=== PATIENT | male | born 1955 | race Caucasian/White ===

== ENCOUNTER 2021-10-28 04:30 | Day surgery (SDC) | payer BC, OTHER ==
[2021-10-22 11:37] VITALS: BMI 38.1
[2021-10-28 08:37] VITALS: TEMP 98
[2021-10-28 09:15] VITALS: BP 115/92; PULSE 70
== END 2021-10-28 09:34 | disposition home or self-care (01) ==
LOC: JASU-ENDO 04:30
PROVIDERS: ATTEND Internal Medicine Gastroenterology
PROC: 0DBP8ZX Excision of Rectum, Via Natural or Artificial Opening Endoscopic, Diagnostic (ICD-10-PCS; 2021-10-28)
PROC: 0DBL8ZX Excision of Transverse Colon, Via Natural or Artificial Opening Endoscopic, Diagnostic (ICD-10-PCS; principal; 2021-10-28 08:00)
DX: Z12.11 Encounter for screening for malignant neoplasm of colon (principal); K62.1 Rectal polyp; D12.3 Benign neoplasm of transverse colon; K57.30 Diverticulosis of large intestine without perforation or abscess without bleeding; K64.8 Other hemorrhoids
CPT/HCPCS: 88305-TC